=== PATIENT | male | born 1975 | race African-American/Black ===

== ENCOUNTER 2016-08-31 18:40 | Emergency (ER) | payer OTHER ==
[~2016-08-31] VITALS: Ht 180.3 cm; Wt 143.3 kg
[~2016-08-31 18:40] MED LIST: AMLO2.5T PO; GLIP10TA55 PO; METF500T PO; TENORETIC50 MG PO; ZESTRIL40 MG OR
[2016-08-31 21:27] VITALS: BP 132/81; TEMP 98.4
== END 2016-08-31 21:33 | disposition home or self-care (01) ==
LOC: ED 18:40
DX: S39.012A Strain of muscle, fascia and tendon of lower back, initial encounter (principal); X50.0XXA Overexertion from strenuous movement or load, initial encounter
CPT/HCPCS: 99283

== ENCOUNTER 2016-09-26 20:08 | Emergency (ER) | payer OTHER ==
[~2016-09-26] VITALS: Ht 180.3 cm; Wt 142.9 kg
[2016-09-26 20:29] VITALS: BP 115/69; TEMP 98.5
== END 2016-09-26 21:11 | disposition home or self-care (01) ==
LOC: ED 20:08
DX: L02.416 Cutaneous abscess of left lower limb (principal); E11.9 Type 2 diabetes mellitus without complications
CPT/HCPCS: 96372; 99282; J0696

== ENCOUNTER 2016-10-14 20:55 | Emergency (ER) | payer OTHER ==
[~2016-10-14] VITALS: Ht 180.3 cm; Wt 142.9 kg
[2016-10-14 21:25] VITALS: TEMP 98.5
[2016-10-14 22:14] VITALS: BP 142/86
== END 2016-10-14 22:14 | disposition home or self-care (01) ==
LOC: ED 20:55
DX: S40.012A Contusion of left shoulder, initial encounter (principal); W11.XXXA Fall on and from ladder, initial encounter; Y92.098 Other place in other non-institutional residence as the place of occurrence of the external cause
CPT/HCPCS: 99282

== ENCOUNTER 2017-03-14 05:26 | Emergency (ER) | payer OTHER ==
[~2017-03-14] VITALS: Ht 180.3 cm; Wt 152.0 kg
[2017-03-14 05:43] VITALS: BP 127/78; TEMP 98.3
== END 2017-03-14 06:32 | disposition home or self-care (01) ==
LOC: ED 05:26
DX: M54.5 Low back pain (principal); R20.0 Anesthesia of skin
CPT/HCPCS: 99281

== ENCOUNTER 2018-08-28 14:23 | Emergency (ER) | payer OTHER ==
[~2018-08-28] VITALS: Ht 180.3 cm; Wt 135.2 kg
[2018-08-28 17:35] VITALS: BP 123/67; TEMP 98.3
== END 2018-08-28 17:35 | disposition home or self-care (01) ==
LOC: ED 14:23
DX: R22.43 Localized swelling, mass and lump, lower limb, bilateral (principal); T78.1XXA Other adverse food reactions, not elsewhere classified, initial encounter; G62.9 Polyneuropathy, unspecified
CPT/HCPCS: 99281

== ENCOUNTER 2019-01-20 18:51 | Outpatient (CLI) | payer BC | END 2019-01-20 23:30 | disposition home or self-care (01) | LOC: RAD 18:51 | DX: M25.562 Pain in left knee (principal) ==

== ENCOUNTER 2019-11-27 15:22 | Emergency (ER) | payer BC ==
[~2019-11-27] VITALS: Ht 180.3 cm; Wt 126.1 kg
[2019-11-27 15:29] VITALS: BP 135/81; TEMP 98.9
== END 2019-11-27 16:27 | disposition home or self-care (01) ==
LOC: ED 15:22
DX: Z48.01 Encounter for change or removal of surgical wound dressing (principal); Z79.2 Long term (current) use of antibiotics
CPT/HCPCS: 99282

== ENCOUNTER 2020-02-18 10:51 | Emergency (ER) | payer BC ==
[~2020-02-18] VITALS: Ht 180.3 cm; Wt 126.1 kg
[2020-02-18 11:00] VITALS: TEMP 98.5
[2020-02-18 11:47] LABS: PLATELET COUNT 189 K/uL (142-355)
[2020-02-18 11:59] LABS: POTASSIUM 4.1 mmol/L (3.6-5.2); SODIUM 133 mmol/L (136-145)
[2020-02-18 16:26] VITALS: BP 103/70
== END 2020-02-18 16:26 | disposition home or self-care (01) ==
LOC: ED 10:51
PROVIDERS: Family Medicine
DX: R42 Dizziness and giddiness (principal); E11.65 Type 2 diabetes mellitus with hyperglycemia; Z79.84 Long term (current) use of oral hypoglycemic drugs
CPT/HCPCS: 80053; 81000; 82553; 82962; 84484; 85027; 93005; 96361; 96365; 96366; 96375; 99284; J1815; J2405

== ENCOUNTER 2021-01-15 14:15 | Outpatient (CLI) | payer BC, OTHER ==
[~2021-01-15] VITALS: Ht 180.3 cm; Wt 117.9 kg
== END 2021-01-15 19:13 | disposition home or self-care (01) ==
LOC: INF 14:15
PROVIDERS: ATTEND Family Medicine
DX: Z23 Encounter for immunization (principal); U07.1 COVID-19
CPT/HCPCS: 96365; M0244

== ENCOUNTER 2022-01-21 00:47 | Emergency (ER) | payer BC ==
[~2022-01-21] VITALS: Ht 180.3 cm; Wt 117.9 kg
[2022-01-21 02:30] VITALS: BP 136/80
== END 2022-01-21 02:30 | disposition home or self-care (01) ==
LOC: ED 00:47
DX: L02.821 Furuncle of head [any part, except face] (principal)
CPT/HCPCS: 96372; 99283; J1885

== ENCOUNTER 2022-02-19 16:41 | Emergency (ER) | payer BC ==
[~2022-02-19] VITALS: Ht 180.3 cm; Wt 117.9 kg
[2022-02-19 16:44] VITALS: BP 145/92; TEMP 97.9
== END 2022-02-19 17:26 | disposition home or self-care (01) ==
LOC: ED 16:41
DX: H66.92 Otitis media, unspecified, left ear (principal); H60.8X2 Other otitis externa, left ear
CPT/HCPCS: 96372; 99283; J1885

== ENCOUNTER 2022-12-27 09:35 | Observation (INO) | payer OTHER ==
[~2022-12-27] VITALS: Ht 180.3 cm; Wt 126.1 kg
[2022-12-27] VITALS (8 sets, daily range): BP systolic 106–138; BP diastolic 59–83; TEMP 97.3–98.7; Ht 180.3 cm; Wt 126.1 kg
[~2022-12-27 09:35] MED LIST changes: -AMLO2.5T PO; +AMLODIPINE PO; -METF500T PO; +METFORMIN HYD1000 M1 PO
[2022-12-27 10:09] LABS: PLATELET COUNT 271 K/uL (142-355)
[2022-12-27 10:16] LABS: POTASSIUM 4.3 mmol/L (3.6-5.2)
[2022-12-27] MEDS ORDERED: CRESTOR20 MG PO (13:12)
[2022-12-27] MEDS ORDERED: CBD GUMMIES PO (13:13)
[2022-12-28 03:58] LABS: PLATELET COUNT 221 K/uL (142-355); POTASSIUM 3.4 mmol/L (3.6-5.2)
[2022-12-28 04:00] VITALS: BP 114/67; TEMP 97.9
[2022-12-28] MEDS ORDERED: CLINDAMYCIN HY300 MG PO (11:06)
== END 2022-12-28 12:10 | disposition home or self-care (01) ==
LOC: ED 09:35 → MED/SURG 10:49
PROVIDERS: Family Medicine; ADMIT Nurse Practitioner Family; ATTEND Internal Medicine Endocrinology, Diabetes & Metabolism
DX: E11.621 Type 2 diabetes mellitus with foot ulcer (principal); I10 Essential (primary) hypertension; E78.49 Other hyperlipidemia
CPT/HCPCS: 36415; 80048; 80053; 82948; 85027; 96360; 96361; 96365; 96367; 96372; 99221; 99284; G0378; J1815